=== PATIENT | female | born 1955 | race Caucasian/White ===

== ENCOUNTER → 2021-08-24 15:58 | Outpatient (CLI) | payer OTHER, SELFPAY ==
--- NOTE | 2021-08-24 15:45 | DI.RAD_ITS ---
Exam(s) XR CHEST 2V PA LATERAL EXAM: XR CHEST 2V PA LATERAL CLINICAL HISTORY: cough R05.9 TECHNIQUE: 2D digital imaging was performed of the chest. Two images were obtained. PA and lateral views were obtained. COMPARISON: No exams were available for comparison FINDINGS: MEDIASTINUM: Normal. HEART: Normal. PULMONARY VASCULATURE: Normal. LUNGS: Clear. PLEURAL SPACE: No pleural effusion or pneumothorax. BONE:Within normal limits for the patient's age. OTHER FINDINGS:Normal. IMPRESSION: No acute pulmonary findings. DATA REPOSITORY: RADIATION DOSE DELIVERED:
== END ==
PROVIDERS: Visit Provider Physician Assistant
DX: R05.9 Cough, unspecified (principal)
CPT/HCPCS: 71046

== ENCOUNTER 2021-08-30 13:43 | Emergency (ER) | payer OTHER, SELFPAY ==
[2021-08-30] VITALS (102 sets, daily range): BP systolic 137–142; BP diastolic 63–78; PULSE 72–84; RESP 13–26; TEMP 36.2; O2SAT 92–98
--- NOTE | 2021-08-30 14:15 | RT.EKG_ITS ---
APPROVED REPORT Exam: Resting ECG Reason for Exam: Chest pain Patient Location: E HR:80 bpm ECG Measurements Heart Rate 80 AXIS NJ 186 P 57 QRSd 92 QRS 43 QT 375 T 55 QTc 434 Conclusion Sinus rhythm...normal P axis, V-rate 60- 99. Sinus. Normal axis. No STEMI. I have reviewed and interpreted ECG and agree with software generated interpretation.
--- NOTE | 2021-08-30 14:23 | ED.GENADUL_ITS ---
Discharge Plan Disposition Patient Disposition: HOME Condition: Stable Discharge Details Clinical Impression: Multifocal pneumonia Primary Care Provider: Kale Unger ED Provider: Gloria Lam Home Meds and New Rx's Prescriptions: New doxycycline hyclate 100 mg tablet 100 mg PO BID 3 Days Qty: 6 0RF Continued doxycycline hyclate 100 mg capsule 100 mg PO BID Qty: 14 0RF Rx Instructions: Avoid sun exposure. Take with meal. Take 1 pill every 12 hours x 7 days benzonatate 100 mg capsule 100 mg PO TID PRN (Reason: cough) Qty: 14 0RF albuterol sulfate [Proventil HFA] 90 mcg/actuation HFA aerosol inhaler 2 puff inhalation Q6H PRN (Reason: shortness of breath or wheezing) Qty: 8.5 0RF acetaminophen [Tylenol Extra Strength] 500 mg Tablet 1,000 mg PO QID Discontinued azithromycin 250 mg tablet See Rx Instructions PO .COMPLEX Qty: 6 0RF Rx Instructions: For 250 mg dose pack: take 500 mg today (day 1), then 250 mg for 4 days (days 2-5) PO Discharge Instructions Instructions: Pneumonia (ED) Additional Instructions: Stop taking the azithromycin and take the doxycycline Yogurt daily while on antibiotic Extend your antibiotics for 3 more days Please return earlier should you have new or worsening complaints Recheck in 48 hours Referrals: Kale Unger [Primary Care Provider] - Discharge Data Discharge Date/Time-TO BE ENTERED AT DEPARTURE: 08/30/21 18:35 Medical Decision Making <Apoorva Diehl NP - Last Filed: 08/31/21 22:02> 65-year-old female presents to the ER with chief complaints of cough, shortness of breath and bilateral chest pain which began acutely at noon today. She does have a congested cough, significant prior medical yesterday diagnosed with pneumonia was given azithromycin, doxycycline and Tessalon Perles. She does have an albuterol inhaler at home which she has been using. She did take Tylenol prior to arrival this morning. She is a former smoker. She also had bronchitis a week ago. She was tested negative for COVID yesterday. She had a negative chest x-ray on August 24. Work-up ordered including EKG, serial troponins, D-dimer will consider chest CT. CBC shows white blood cell count of 12.54, platelets 453, absolute neutrophils 9.09 D-dimer 1138, CMP within normal limits glucose 134 initial troponin within normal limits. CT chest rule out PE ordered. Care to be handed off to oncoming provider GRACIELA Sy pending CT result, repeat troponin and disposition. Lab Data Lab results reviewed: Yes I reviewed the patient's lab results. Labs: Laboratory Tests Range/Units 08/30/21 08/30/21 08/30/21 14:10 14:10 14:10 WBC (4.4-10.8) 10^3/uL 12.54 H RBC (3.93-5.22) 10^6/uL 3.84 L Hgb (11.2-15.7) g/dL 11.4 Hct (36.0-46.0) % 34.6 L MCV (80-95) fL 90 MCH (27.0-33.0) pg 29.7 MCHC (32.0-36.0) % 32.9 RDW (11.7-14.6) % 13.2 Plt Count (130-400) 10^3/uL 453 H MPV (8.0-11.0) fL 9.2 Immature Gran % 3.8 Neutrophils % 72.5 Lymphocytes % 16.8 Monocytes % 5.8 Eosinophils % 0.8 Basophils % 0.3 Nucleated RBC % (0.0-0.3) % 0.0 Absolute Neutrophils (1.2-6.7) 10^3/uL 9.09 H Absolute Lymphocytes (1.2-3.4) 10^3/uL 2.11 Absolute Monocytes (0.1-0.8) 10^3/uL 0.73 Absolute Eosinophils (0.0-0.7) 10^3/uL 0.10 Absolute Basophils (0.0-0.2) 10^3/uL 0.04 D-Dimer (<500) ng/mlFEU 1138 H Sodium (136-145) mmol/L 136 Potassium (3.5-5.1) mmol/L 3.9 Chloride (98-107) mmol/L 100 Carbon Dioxide (21.0-32.0) mmol/L 29.7 Anion Gap (3-11) mmol/L 6.3 BUN (7-18) mg/dL 10 Creatinine (0.55-1.02) mg/dL 0.6 Estimated GFR/1.73 m2 (mL/min/1.73m2) >= 60.00 Glucose (74-106) mg/dL 134 H Calcium (8.5-10.1) mg/dL 9.0 Magnesium (1.8-2.4) mg/dL 2.3 Total Bilirubin (0.2-1.0) mg/dL 0.3 AST (15-37) U/L 24 ALT (14-59) U/L 33 Alkaline Phosphatase (46-116) U/L 111 Troponin I (<or=60) ng/L < 50 Total Protein (6.4-8.2) g/dL 7.9 Albumin (3.4-5.0) g/dL 3.4 <GRACIELA Sy - Last Filed: 08/30/21 21:39> 65-year-old female presents to the ER with chief complaints of cough, shortness of breath and bilateral chest pain which began acutely at noon today. She does have a congested cough, significant prior medical yesterday diagnosed with pneumonia was given azithromycin, doxycycline and Tessalon Perles. She does have an albuterol inhaler at home which she has been using. She did take Tylenol prior to arrival this morning. She is a former smoker. She also had bronchitis a week ago. She was tested negative for COVID yesterday. She had a negative chest x-ray on August 24. Work-up ordered including EKG, serial troponins, D-dimer will consider chest CT. CBC shows white blood cell count of 12.54, platelets 453, absolute neutrophils 9.09 D-dimer 1138, CMP within normal limits glucose 134 initial troponin within normal limits. CT chest rule out PE ordered. Care to be handed off to oncoming provider GRACIELA Sy pending CT result, repeat troponin and disposition. care accepted in transition from at [address] scan and repeat troponin and EKG I discussed with Dr. Ruiz, radiologist the patient has multifocal pneumonia Patient clinically appears well, she has not hypoxic and she does request discharge home Radha states she is feeling slightly improved from yesterday when she was started on doxycycline and azithromycin I discontinued her azithromycin, she will continue to take 10 days of doxycycline, I have added 3 days on her regimen She will have yogurt daily while she is on this Her second troponin and EKG were negative, my suspicion for cardiac etiology is low based on her clinical exam and diagnostic labs and EKG 50 mg with return should she have new or worsening complaints and discharged home in stable condition with stable vital Medical Records Medical records reviewed: Yes I reviewed the patient's medical records. HPI <Apoorva Diehl NP - Last Filed: 08/31/21 22:02> General Mode of arrival: ambulatory . Date/Time Provider Initiated Documentation: 08/30/21 13:43 . Limitations to Documentation: no limitations . Information obtained by: patient, RN notes reviewed and old records reviewed . HPI Narrative: 65-year-old female presents to the ER with chief complaints of cough, shortness of breath and bilateral chest pain which began acutely at noon today. She does have a congested cough, significant prior medical yesterday diagnosed with pneumonia was given azithromycin, doxycycline and Tessalon Perles. She does have an albuterol inhaler at home which she has been using. She did take Tylenol prior to arrival this morning. She is a former smoker. She also had bronchitis a week ago. She was tested negative for COVID yesterday. She had a negative chest x-ray on August 24. Related Data Home Medications Medication Instructions Recorded Confirmed albuterol sulfate 90 mcg/actuation 2 puff inhalation Q6H PRN 08/24/21 08/30/21 aerosol inhaler (Proventil HFA) shortness of breath or wheezing #8.5 grams benzonatate 100 mg capsule 100 mg PO TID PRN cough #14 caps 08/29/21 08/30/21 doxycycline hyclate 100 mg capsule 100 mg PO BID #14 caps 08/29/21 08/30/21 acetaminophen 500 mg tablet 1,000 mg PO QID 08/30/21 08/30/21 (Tylenol Extra Strength) doxycycline hyclate 100 mg tablet 100 mg PO BID 3 days #6 tabs 08/30/21 Previous Rx's Medication Instructions Recorded albuterol sulfate 90 mcg/actuation 2 puff inhalation Q6H PRN 08/24/21 aerosol inhaler (Proventil HFA) shortness of breath or wheezing #8.5 grams benzonatate 100 mg capsule 100 mg PO TID PRN cough #14 caps 08/29/21 doxycycline hyclate 100 mg capsule 100 mg PO BID #14 caps 08/29/21 doxycycline hyclate 100 mg tablet 100 mg PO BID 3 days #6 tabs 08/30/21 Allergies Allergy/AdvReac Type Severity Reaction Status Date / Time Penicillins Allergy Verified 08/30/21 13:51 General Stated Complaint: GenMedical RADHA: 3 Review of Systems <Apoorva Diehl NP - Last Filed: 08/31/21 22:02> All systems reviewed & are unremarkable except as noted in HPI and below Constitutional Constitutional: Denies body ache(s), Denies chills and Denies fever(s) Cardiovascular Cardiovascular: Reports as per HPI, Reports chest pain and Reports dyspnea on exertion Respiratory Respiratory: Reports chest congestion, Reports cough, Denies hemoptysis, Reports pain with cough, Reports dyspnea on exertion and Denies wheezing Gastrointestinal Gastrointestinal: Denies diarrhea, Denies nausea and Denies vomiting Allergic/Immunologic Allergic/Immunologic: Denies wheezing PFSH <Apoorva Diehl NP - Last Filed: 08/31/21 22:02> All Active Problems (Updated 08/30/21 @ 18:11 by GRACIELA Sy) Multifocal pneumonia (Acute) Social History Smoking/Tobacco Use Status: Never Smoking risk assessment performed?: Yes Alcohol Intake: never Drug use: Never Substance use type: does not use Do you feel safe at home: Yes Do you feel safe in your relationship?: Yes Exam <Apoorva Diehl NP - Last Filed: 08/31/21 22:02> Narrative Exam Narrative: Constitutional: Alert and oriented x3. Appears stated age. Thinl body habitus. Head: Normocephalic, no trauma. Eyes: Pupils PERRL, Red reflex noted, EOM's intact. Eyelids symmetrical without lesions, discharge, or swelling. ENT: Bilateral TM's WNL, External ear normal to inspection, no mastoid TTP, swelling, or erythema, Nasal turbinates WNL, no nasal discharge. Normal dentition, Posterior pharynx WNL, no exudate. Chest: RRR, Normal S1, S2, distal pulses intact. Resp: Lungs clear to auscultation bilaterally, no wheezes, rales, or rhonchi. Does have a congested bronchial cough. Abdomen: Soft, non-distended, Normoactive bowel sounds all 4 quads. Musculoskeletal: Normal gait, 5/5 strength to all four extremities. Skin: No suspicious rashes or lesions. Capillary refill less than 2 sec. Neurologic: Cranial nerves II-XII intact. Alert and oriented x 3. Motor: No deficits noted. Sensory: Intact bilaterally all 4 extremities. Reflexes: DTR's intact bilaterally.. Hematologic/Lymphatic: No ecchymosis, no lymphadenopathy. Course <Apoorva Diehl NP - Last Filed: 08/31/21 22:02> Vital Signs Vital signs: Vital Signs Temperature 36.2 C L 08/30/21 13:48 Pulse 84 08/30/21 13:48 Respiratory Rate 16 08/30/21 13:48 Blood Pressure 142/78 H 08/30/21 13:48 Pulse Oximetry 98 08/30/21 13:48 Temperature 36.2 C L 08/30/21 13:48 Temperature Source Skin 08/30/21 13:48 Pulse 84 08/30/21 13:48 Respiratory Rate 20 08/30/21 13:59 Respiratory Effort Short of Breath 08/30/21 13:59 Respiratory Depth Normal 08/30/21 13:59 Respiratory Pattern Normal 08/30/21 13:59 Blood Pressure 142/78 H 08/30/21 13:48 Blood Pressure Position Sitting 08/30/21 13:48 Pulse Oximetry 98 08/30/21 13:48 Oxygen Delivery Method Room Air 08/30/21 13:48 Oxygen Flow Rate 0 08/30/21 13:48 Pain Level 10 08/30/21 13:48 Sign Out <Apoorva Diehl NP - Last Filed: 08/31/21 22:02> Sign Out Data: Sign Out Comment: Pending CTA Chest and Repeat Troponin Last updated by Apoorva Diehl NP at 08/30/21 15:37
[2021-08-30 14:32] LABS: Abs Immature Grans 0.48 10^3/uL (0.0-0.06); Absolute Basophil Count 0.04 10^3/uL (0.0-0.2); Absolute Lymphocyte Count 2.11 10^3/uL (1.2-3.4); Absolute Monocyte Count 0.73 10^3/uL (0.1-0.8); Basophils % 0.3; Eosinophils % 0.8; HCT 34.6 % (36.0-46.0); HGB 11.4 g/dL (11.2-15.7); Immature Grans % 3.8; Lymphocytes % 16.8; MCH 29.7 pg (27.0-33.0); MCHC 32.9 % (32.0-36.0); MCV 90 fL (80-95); MPV 9.2 fL (8.0-11.0); Monocytes % 5.8; Neutrophils % 72.5; Platelet Count 453 10^3/uL (130-400); RBC 3.84 10^6/uL (3.93-5.22); RDW 13.2 % (11.7-14.6); RDW-SD 43.8 fL; WBC 12.54 10^3/uL (4.4-10.8)
[2021-08-30 14:34] LABS: Absolute Neutrophil Count 9.09 10^3/uL (1.2-6.7)
[2021-08-30] MEDS: Ketorolac 15 MG/ML VIAL IVP (14:38)
[2021-08-30 14:53] LABS: ALT 33 U/L (14-59); AST 24 U/L (15-37); Albumin 3.4 g/dL (3.4-5.0); Alkaline Phosphatase 111 U/L (46-116); Anion Gap 6.3 mmol/L (3-11); BUN 10 mg/dL (7-18); Bilirubin, Total 0.3 mg/dL (0.2-1.0); CO2 29.7 mmol/L (21.0-32.0); CREATININE 0.6 mg/dL (0.55-1.02); Chloride 100 mmol/L (98-107); Glucose 134 mg/dL (74-106); Magnesium 2.3 mg/dL (1.8-2.4); Potassium 3.9 mmol/L (3.5-5.1); Sodium 136 mmol/L (136-145); Total Protein 7.9 g/dL (6.4-8.2); Troponin I < 50 ng/L (<or=60)
[2021-08-30 15:15] LABS: D-Dimer 1138 ng/mlFEU (<500)
--- NOTE | 2021-08-30 15:15 | DI.CT_ITS ---
Exam(s) CT CHEST PE CTA EXAM: CT CHEST PE CTA CLINICAL HISTORY: R/O PE, Chest Pain, Cough. TECHNIQUE: Imaging Protocol: Axial CT angiography was performed with multi-slice acquisition and mu lti-planar and/or 3D reconstructions. CONTRAST MATERIAL: Intravenous: Omnipaque 350ml contrast volume:100 mL COMPARISON: CR XR CHEST 2V PA LATERAL from 08/24/2021 FINDINGS: Tracheobronchial tree: Patent where visualized. Pulmonary parenchyma: Multifocal opacities are seen in the lungs. Some of which have a ground-glass opacity. There are some larger areas of consolidation seen in the left lower lobe. No architectural distortion. Pulmonary Arteries: No evidence of filling defect to suggest pulmonary emboli. Mediastinum and Kaylee: No dominant adenopathy or fluid collection. The esophagus is unremarkable. Visualized thyroid gland: Unremarkable. Pleura: There are small bilateral pleural effusions. No pneumothorax. Heart: Mild cardiomegaly. Mild coronary artery calcification. No pericardial effusion. Aorta: Thoracic aorta non-dilated. No evidence of dissection. Mild atherosclerosis. Upper abdomen: Unremarkable. Soft tissues: Unremarkable. Bones: Within normal limits for the patient's age. IMPRESSION: 1. No evidence of pulmonary embolism, thoracic aortic dissection or aneurysm. 2. Multifocal opacities in the lungs some which have a ground-glass opacity. Findings are suspicious for multifocal pneumonia. A follow-up CT scan after treatment is recommended to document clearing o f the infiltrates. 3. Small bilateral pleural effusions. 4. Results of this exam have been verbally communicated with provider. RADIATION DOSE DELIVERED: 298.57mGy.cm Total DLP DATA REPOSITORY: All CT scans at this facility are submitted to the National Radiology Data Registry (NRDR) Dose Index Registry (DIR) with the [employer] ([employer]). RADIATION OPTIMIZATION: All CT scans at this facility use at least one of these dose optimization te chniques: automated exposure control; mA and/or kV adjustment per patient size (includes targeted exa ms where dose is matched to clinical indication); or iterative reconstruction.
[2021-08-30] MEDS: Omnipaque 350 MG/ML 100 ML BTL IJ (16:03)
--- NOTE | 2021-08-30 17:00 | RT.EKG_ITS ---
APPROVED REPORT Exam: Resting ECG Reason for Exam: repeat trop Patient Location: E HR:69 bpm ECG Measurements Heart Rate 69 AXIS ND 203 P 57 QRSd 86 QRS 40 QT 411 T 52 QTc 441 Conclusion Sinus rhythm...normal P axis, V-rate 60- 99 Probable left atrial enlargement...P >50mS, <-0.10mV V1. Sinus. Normal axis. No STEMI. I have reviewed and interpreted ECG and agree with software generated interpretation.
[2021-08-30 17:52] LABS: Troponin I < 50 ng/L (<or=60)
[2021-09-01 11:51] LABS: COVID-19 RT-PCR UVMMC Result Negative (Negative)
== END 2021-08-30 18:35 | disposition home or self-care (01) ==
PROVIDERS: Registered Nurse Emergency; Emergency Provider Physician Assistant; PCP Neuromusculoskeletal Medicine & OMM
DX: J18.9 Pneumonia, unspecified organism (principal); R07.9 Chest pain, unspecified; R05.1 Acute cough
CPT/HCPCS: 36415; 71275; 80053; 93005; 96374; 99284; 99285; U0003; 83735; 84484; 85025; 85379; 93010; J1885; J3490

== ENCOUNTER 2021-09-13 18:15 | Outpatient (REF) | payer OTHER, SELFPAY | END 2021-09-14 15:35 | disposition home or self-care (01) | LOC: LBN 18:15 | PROVIDERS: PCP Neuromusculoskeletal Medicine & OMM; Visit Provider Physician Assistant | DX: R30.0 Dysuria (principal) | CPT/HCPCS: 87480; 87510; 87660 ==

== ENCOUNTER → 2022-11-10 00:52 | Outpatient (CLI) | payer OTHER, SELFPAY ==
--- NOTE | 2022-11-10 15:34 | DI.MAMMO_ITS ---
Exam(s) MAMMO SCREENING EXAM: MAMMO SCREENING CLINICAL HISTORY: screening,z12.39 TECHNIQUE: Mammograms were interpreted according to the usual protocol including computer analysis w ith CAD system, tomosynthesis and C-view imaging. COMPARISON: No exams were available for comparison. FINDINGS: The breasts are composed of scattered fibroglandular densities, Breast Density category B. No suspicious masses or suspicious microcalcifications are seen. No skin thickening or abnormal axillary lymph nodes are seen. IMPRESSION: BI-RADS Category 1, Negative mammogram Yearly screening mammography is recommended. If the patient's prior exams become available, an addendum will be issued. Breast Density - Category B, scattered fibroglandular densities. A negative radiographic report should not delay biopsy if a dominant or clinically suspicious mass is present. Up to ten percent of cancers are not identified on mammography. A negative report may reinforce clinical impression. Adenosis and dense breasts may obscure an underlying neoplasm. False positive reports average 6 to 10%. Patient will receive a letter notifying them of these results.
== END ==
PROVIDERS: PCP Nurse Practitioner Family; Visit Provider Nurse Practitioner Family
DX: Z12.31 Encounter for screening mammogram for malignant neoplasm of breast (principal)
CPT/HCPCS: 77063; 77067

== ENCOUNTER 2022-11-10 01:57 | Outpatient (CLI) | payer OTHER, SELFPAY ==
[2022-11-10 15:35] LABS: Hemoglobin A1C 5.5 % (<5.7)
[2022-11-10 17:07] LABS: Calculated LDL 127 mg/dL (<100); Cholesterol 220 mg/dL (<200); HDL Cholesterol 45 mg/dL (40-60); Triglyceride 240 mg/dL (<150)
== END 2022-11-10 01:58 | disposition home or self-care (01) ==
LOC: LBO 01:57
PROVIDERS: PCP Nurse Practitioner Family; Visit Provider Nurse Practitioner Family
DX: Z13.220 Encounter for screening for lipoid disorders (principal); Z13.1 Encounter for screening for diabetes mellitus
CPT/HCPCS: 36415; 80061; 83036

== ENCOUNTER 2023-01-12 08:55 | Day surgery (SDC) | payer OTHER, SELFPAY ==
--- NOTE | 2023-01-11 16:20 | W.COLOREPORT ---
Date of service: 01/12/23 Time of Service: 12:39 Colonoscopy Report Date of procedure: 01/12/23 Pre-op diagnosis general: CRC screening/hx of incomplete colo Post-op diagnosis procedure note: other (Internal and external hemorrhoids/incomplete rectal prolapse at 7:00/diverticula/polyp) Surgeon: Ruby Casillas Anesthesia Type: General:No Airway Estimated blood loss (mL): 2 Pathology: other Complications: None Disposition: same day Prep: Miralax/Dulcolax Retraction Time: 10 Procedure Description: After informed consent was obtained the patient was taken to the procedure room and placed in a left decubitous position. Monitors were applied and a time out was done. The patients name, date of , procedure, allergies to medications and metal in their body was reviewed. The patient was then sedated. Once sedated and comfortable a rectal exam was done. External exam shows moderate external hemorrhoids with no signs of active bleeding or thrombosis. She also has incomplete rectal prolapse at the 7 o'clock position.. Internal exam revealed a normal sphincter tone and no palpable masses. The scope was then introduced and retrofelexed. No internal hemorrhoids were identified. The scope was then advanced to the cecum without difficulty. She does have a tortuous and redundant colon however I am able to proceed to the cecum. The TI and appendiceal orifice were identified. The prep was BBPS 3 in all segments for a total of 9. The scope was then slowly retracted over 10 minutes back into the rectum. She has a flat 0.5 cm polyp at 20 cm that is removed with a cold biopsy forcep. All specimen is retrieved and no bleeding is noted. She has moderate diverticula confined to the sigmoid colon with no signs of active bleeding or infection.. The scope was removed and the patient was woken up and taken back to Same day surgery in stable condition. The patient tolerated the procedure well and there were no immediate complications. Follow up: The patient should follow up in ~7 years, path pending, unless they develop changes in bowel habits or other new gastrointestinal complaints.
--- NOTE | 2023-01-11 16:21 | PDOC.DSDIS_ITS ---
Date of service: 01/12/23 Time of Service: 10:56 Discharge Plan Disposition Patient Disposition: Home Condition: Good Discharge Details Reason For Visit: colon scope Attending Provider: Ruby Casillas Primary Care Provider: Steven Mandel Home Meds and New Rx's Prescriptions: Continued ascorbate calcium (vitamin C) 500 mg tablet 500 mg PO DAILY cholecalciferol (vitamin D3) 50 mcg (2,000 unit) capsule 50 mcg PO DAILY vitamin K2 45 mcg capsule 45 mcg PO DAILY mupirocin 2 % ointment 1 applic topical TID Qty: 15 0RF albuterol sulfate [Proventil HFA] 90 mcg/actuation HFA aerosol inhaler 2 puff inhalation Q6H PRN (Reason: shortness of breath or wheezing) Qty: 8.5 0RF acetaminophen [Tylenol Extra Strength] 500 mg Tablet 1,000 mg PO QID Discontinued bisacodyl [Dulcolax (bisacodyl)] 5 mg tablet,delayed release (DR/EC) 5 mg PO ONCE Qty: 4 0RF Rx Instructions: Take per colonoscopy instructions provided by ordering providers office polyethylene glycol 3350 17 gram/dose powder 17 g PO ONCE Qty: 238 0RF Rx Instructions: Take per colonoscopy instructions provided by ordering providers office Discharge Instructions Additional Instructions: DSU Colonoscopy Post- Op Instructions Instructions for Everyone who is given Anesthesia: For your safety, please do the following for the next twenty-four (24) hours: *Do Not operate a motor vehicle (car, truck, motorcycle, etc.) *Do Not drink alcoholic beverages or use any recreational drugs for the first 24 hours or while taking pain medications. The medications in your body may have a reaction that can be dangerous. *Do Not make any important decisions or sign any important papers. Findings: External hemorrhoids Incomplete rectal prolapse Diverticula Colon polyp x1 *I would recommend starting a fiber supplement daily such as Metamucil. Start with 1 teaspoon daily and work up to a tablespoon after several weeks Follow up: My office will send you a letter in 2 to 3 weeks time with the results of the pathology and when we want you to repeat the colonoscopy 1. No lifting over 20 pounds or strenuous activity for the first 24 hours after your procedure. After 24 hours there are no restrictions on your activity but you may feel fatigued for a few days. 2. After you arrive home you may have a light meal and return to your normal diet as you can tolerate it without feeling sick to your stomach. 3. You may have a bloated, gaseous feeling in your belly (abdomen) after a colonoscopy. Passing gas and belching will help. Walking or lying down on your left side with your knees flexed may relieve the discomfort. Call the office at [phone] (Office) or [phone] (Hospital) right away if you notice any of the following: a.Vomiting of blood or ?coffee ground stools?. b.Rectal bleeding 1Tbsp, blood clots or continuous bleeding. c.Severe belly (abdominal) pain. d.A hard distended belly (abdomen) and an inability to pass gas. 4. Please don?t expect to have a normal BM (bowel movement) for 2-3 days after your procedure. 5. If there are questions regarding the findings of your procedure, please contact your doctor 6. If you are unable to contact your doctor with a problem, contact the hospital at [phone]. 7. Continue all your regular medications unless directed otherwise. I understand the above instructions and have no questions. Signature of Patient or Adult Escort Name of Responsible Adult Escort Signature of Nurse Date/Time Activity:: see above Diet:: see above Discharge Orders Discharge Orders: Discharge Order (Routine); Ordered 01/12/23 Ordered By: Ruby Casillas DS: Diagnosis Discharge Diagnosis (1) Screening for malignant neoplasm of colon performed: Status: Acute Asessment and Plan: The patient is seen and examined after their colonoscopy.? The patient has been able to pass gas.? They are not having abdominal pain.? They have been able to tolerate liquids and a snack.? They do not have any nausea or vomiting.? They are not having any chest pain or shortness of breath.??? They are not having any rectal bleeding. Their vital signs have been stable-see nursing notes. We discussed findings during their colonoscopy, and any biopsies that were done/polyps that were removed. The patient will be sent a letter with any biopsy results, and when to repeat the colonoscopy.-see discharge instructions. Patient was given explicit instructions to follow-up regarding colonoscopy-refer to discharge instructions.? We reviewed resumption of medications. Patient verbalized understanding and discharged in stable and satisfactory condition- See nursing notes. (2) External hemorrhoid: Status: Acute (3) Incomplete rectal prolapse: Status: Acute (4) Diverticula of colon: Status: Acute (5) Adenomatous polyps: Status: Acute (6) Chronic constipation: Status: Acute
[2023-01-12 09:15] VITALS: BP 135/78; PULSE 78; RESP 16; TEMP 36.2; O2SAT 99
[2023-01-12] MEDS: Lactated Ringers 1,000 ML 80 ML IV (09:34)
--- NOTE | 2023-01-12 09:41 | ANES.PREOP_ITS ---
General Info Date of Service Date Performed: 01/12/23 Height: 5 ft 5 in Weight: 68.3 kg Body Mass Index (BMI): 25.0 Surgical Procedure: Operation Date: 01/12/23 10:35 Proposed Procedure Side Surgeon deana Casillas, Meds Allergies and Home Medications Allergies Allergy/AdvReac Type Severity Reaction Status Date / Time Penicillins Allergy Verified 01/11/23 10:42 Home Medication Medication Instructions Recorded albuterol sulfate 90 mcg/actuation 2 puff inhalation Q6H PRN 08/24/21 aerosol inhaler (Proventil HFA) shortness of breath or wheezing #8.5 grams acetaminophen 500 mg tablet 1,000 mg PO QID 08/30/21 (Tylenol Extra Strength) mupirocin 2 % topical ointment 1 applic topical TID #15 grams 09/30/22 ascorbate calcium (vitamin C) 500 500 mg PO DAILY 11/02/22 mg tablet cholecalciferol (vitamin D3) 50 50 mcg PO DAILY 11/02/22 mcg (2,000 unit) capsule vitamin K2 45 mcg capsule 45 mcg PO DAILY 11/02/22 Current Visit Medications: Current Medications Generic Name Dose Route Start Last Admin Trade Name Freq PRN Reason Stop Dose Admin Hyoscyamine Sulfate 0.125 mg 01/12/23 11:35 Hyoscyamine 0.125 Mg Sl/Oral/Chew SL 02/11/23 11:34 DIRECTED PRN Ringer's Solution 1,000 mls @ 80 mls/hr 01/12/23 06:00 01/12/23 09:34 IV 02/10/23 23:59 80 mls/hr INFUSION LUIS Administration IV Miscellaneous Supplies 1 each 01/12/23 06:00 Iv Access IV 02/10/23 23:59 DIRECTED LUIS Ondansetron HCl 4 mg 01/12/23 11:35 Ondansetron 4 Mg/2 Ml Vial IVP 02/11/23 11:34 Q4H PRN PRN Nausea / Vomiting Sodium Chloride 0 ml 01/12/23 06:00 Normal Saline Flush 10 Ml Syr IV 02/10/23 23:59 PRN PRN Sodium Chloride 0 ml 01/12/23 06:00 Normal Saline 10 Ml Vial IJ 02/10/23 23:59 DIRECTED PRN Sterile Water 0 ml 01/12/23 06:00 Water,Injection,Sterile 10 Ml Vial IJ 02/10/23 23:59 DIRECTED PRN PFS Active Problems Active Problems: Problem Status Onset Code Screening for malignant neoplasm of colon performed Z12.11 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 Lentiginosis L81.4 Elevated blood pressure reading without diagnosis of hypertension R03.0 Actinic keratoses L57.0 Senile hyperkeratosis L57.0 Eczema L30.9 Seborrheic dermatitis of scalp L21.9 Residual hemorrhoidal skin tags K64.4 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 Raynaud disease I73.00 Verruca vulgaris B07.9 Medical History Medical History Basal cell carcinoma of skin (~01/27/20) Dermatofibroma (~01/27/20) Malignant melanoma of skin Viral warts Surgical History Surgical History Hx of tubal ligation (~03/05/92) Tobacco Smoking/Tobacco Use Status: Former Tobacco Use Passive smoking exposure: Yes Second hand exposure: Yes Alcohol Alcohol Intake: current Alcohol intake frequency: a few times a week Alcohol type: wine Substance Use Substance use: Never Substance use type: does not use Vital Signs and Lab Results Vital Signs Most Recent Vital Signs in EMR: Most Recent Vital Signs Temp Pulse Resp BP Pulse Ox 36.2 C L 78 16 135/78 99 01/12/23 09:15 01/12/23 09:15 01/12/23 09:15 01/12/23 09:15 01/12/23 09:15 Lab Results Blood Type / Crossmatch: No Data to Display Complete Blood Count: No Data to Display Complete Metabolic Panel: No Data to Display Liver Function Panel: No Data to Display Coagulation Panel: No Data to Display Cardiac Panel: No Data to Display Arterial Blood Gas: No Data to Display Venous Blood Gas: No Data to Display Pancreas Panel: No Data to Display Thyroid Panel: No Data to Display Infectious Disease: No Data to Display Blood Cultures: No Data to Display Toxicology Panel: No Data to Display Imaging and Studies Imaging and Studies Study information below may be from another EMR and interpreted by another provider. Please see original notes in EMR for more complete details. EKG Summary: EKG PATIENT NAME: Lisa Mccray UNIT #: [id number] ORDERING PROVIDER: Gloria Lam PRIMARY CARE PROVIDER: AIDAN ARMENDARIZ DO DATE/TIME OF SERVICE: 08/30/211717 : 1955 PERFORMING LOCATION: ER APPROVED REPORT Exam: Resting ECG Reason for Exam: repeat trop Patient Location: E HR:69 bpm ECG Measurements Heart Rate 69 AXIS MO 203 P 57 QRSd 86 QRS 40 QT 411 T52 QTc 441 Conclusion Sinus rhythm...normal P axis, V-rate 60- 99 Probable left atrial enlargement...P >50mS, <-0.10mV V1. Sinus. Normal axis. No STEMI. I have reviewed and interpreted ECG and agree with software generated interpretation. <Electronically signed by LAURA JORGE DO in [facility]> E-Sign Date: 08/30/21 E-Sign Time: 1804 ADDENDUM APPROVED REPORT Exam: Resting ECG Reason for Exam: repeat trop Patient Location: E HR:69 bpm ECG Measurements Heart Rate 69 AXIS MO 203 P 57 QRSd 86 QRS 40 QT 411 T52 QTc 441 Conclusion Sinus rhythm...normal P axis, V-rate 60- 99 Probable left atrial enlargement...P >50mS, <-0.10mV V1. Sinus. Normal axis. No STEMI. I have reviewed and interpreted ECG and agree with software generated interpretation. I have reviewed and I agree with the emergency room physician's ECG interpretation. Electronically signed by: <Electronically signed by Denisse Serra M.D. in [facility]> 09/01/21 0830 Cosigned by: Anesthesia Assessment and Plan Anesthesia History Personal History: No History of Anesthesia Complications Family History: No Family History of Anesthesia Complications Exercise Tolerance Exercise Tolerance: Metabolic Equivalents>4 Pertinent Negatives Pertinent Negatives: No Symptoms of GERD, No Major Cardiovascular Symptoms or Complaints, No Major Pulmonary Symptoms or Complaints and No History of CVA/TIA Cardiac & Pulmonary Exam Cardiac Exam: Normal S1/S2 Heart Sounds Pulmonary Exam: Clear Bilateral Breath Sounds Implantable Cardiac Device Does patient have a Pacemaker or an ICD?: No Airway Exam Known Difficult Airway: No Mallampati Class: 2 Mouth Opening: Normal (> 3cm) Thyromental Distance: Greater than 3 cm Neck Range of Motion: Full ROM Neck Circumference: Normal Teeth Condition: Normal Dentition ASA Classification ASA Score: ASA 2 Emergency Case?: No NPO Status NPO Status: NPO Clears >2 hours, Solids >8 hours Anesthesia Plan Resuscitation Status: Full Code Anesthesia Technique: General Anesthesia Airway Planned: Natural Airway Monitors Used: Standard Monitors
[2023-01-12 10:17] VITALS: BMI 25.0
--- NOTE | 2023-01-12 10:25 | BOWEL_PTH ---
PATIENT: Lisa Mccray LOC: [facility] U#:[id number] AGE/SX: 67/F ROOM: RE01/12/[address]: Ruby Casillas : 1955 BED: DIS: 01/12/2023 SPEC #: [id number] RECD: 01/12/23 12:08 STATUS: RORO REAlberto #: [id number] JHONATHAN: 01/12/23 10:[address]: Ruby Casillas DEPT: Surgical Specimen RECD BY: Gloria Cox ENTERED: 01/12/23 12:09 SP TYPE: Bowel OTHR DR: Steven Mandel, DRAGGER OUT Tissues: 1 - BIOPSY BOWEL Procedures: GROSS AND MICRO LEVEL 4 Comments: [id number]
[2023-01-12 10:30] VITALS: BP 118/70; PULSE 59; RESP 16; TEMP 36.5; O2SAT 98
[2023-01-12 11:00] VITALS: BP 131/76; PULSE 57; RESP 17; TEMP 36.5; O2SAT 99
--- NOTE | 2023-01-12 12:23 | W.ANESPOSTOP ---
Postoperative Evaluation Date, Time and Location Date Performed: 01/12/23 Time Performed: 10:33 Patient Location: Day Surgery Unit Vital Signs Most Recent Imported Vital Signs: Most Recent Vital Signs Temp Pulse Resp BP Pulse Ox 36.5 C 57 L 17 131/76 99 01/12/23 11:00 01/12/23 11:00 01/12/23 11:00 01/12/23 11:00 01/12/23 11:00 Pain Score Most Recent Pain Score: Most Recent Pain Score Pain Level 0 01/12/23 11:00 Assessment Mental Status: Awake (Alert & Oriented to Patient Baseline) Airway and Respiratory Function: Patent airway with normal (patient baseline) respiratory exam Cardiovascular Function: Hemodynamically Stable Hydration Status: Adequately Hydrated Nausea & Vomiting: No Nausea or Vomiting Pain: Pt. Denies Any Pain Peripheral Nerve Block: Patient did not receive a nerve block
== END 2023-01-12 11:40 | disposition home or self-care (01) ==
PROVIDERS: PCP Nurse Practitioner Family; Visit Provider Surgery
PROC: 0DJD8ZZ Inspection of Lower Intestinal Tract, Via Natural or Artificial Opening Endoscopic (ICD-10-PCS; CPT 45378; principal; 2023-01-12 10:30)
DX: Z12.11 Encounter for screening for malignant neoplasm of colon (principal); D12.5 Benign neoplasm of sigmoid colon; K62.3 Rectal prolapse; K64.4 Residual hemorrhoidal skin tags; K57.30 Diverticulosis of large intestine without perforation or abscess without bleeding
CPT/HCPCS: 45380; 88305

== ENCOUNTER 2023-11-27 01:27 | Outpatient (CLI) | payer OTHER, SELFPAY ==
--- NOTE | 2023-11-27 06:15 | DI.MAMMO_ITS ---
Exam(s) MAMMO SCREENING EXAM: MAMMO SCREENING CLINICAL HISTORY: screening,z12.39 TECHNIQUE: Bilateral full field digital CC and MLO mammographic images were obtained with 3D tomosyn thesis and utilizing computer aided detection (CAD). COMPARISON: Available for comparison. FINDINGS: Masses/Architectural Distortion: None seen. Microcalcifications: No suspicious pleomorphic-type are seen. Skin Thickening/Nipple Retraction: None. IMPRESSION: 1. No significant interval change with no specific features of malignancy noted. 2. Unless there is more urgent need, screening mammography is recommended, as per [place] guidelines. BI-RADS Category 1 - Negative Breast Density - Category B - Scattered areas of fibroglandular density Breast density category C or D implies that the patient has dense breast tissue. Dense breast tissue is very common and is not abnormal but dense breast tissue can make it harder to find cancer on a ma mmogram. Also, dense breast tissue may increase their breast cancer risk. This information about the result of the mammogram report was provided to the patient to raise their awareness. Use this report when you speak with the patient about their risks for breast cancer, which includes their family hist ory. At that time, you may recommend for more screening tests (Ultrasound or MRI) as they might be us eful based on their risk. A negative radiographic report should not delay biopsy if a dominant or clinically suspicious mass is present. Up to ten percent of cancers are not identified on mammography. A negative report may reinforce clinical impression. Adenosis and dense breasts may obscure an underlying neoplasm. False positive reports average 6 to 10%. Patient will receive a letter notifying them of these results.
== END 2023-11-27 01:47 ==
LOC: DI 01:28
PROVIDERS: PCP Nurse Practitioner Family; Visit Provider Nurse Practitioner Family
DX: Z12.31 Encounter for screening mammogram for malignant neoplasm of breast (principal)
CPT/HCPCS: 77063; 77067

== ENCOUNTER 2024-01-07 03:00 | Outpatient (CLI) | payer OTHER, SELFPAY ==
[2024-01-07 10:51] LABS: Calculated LDL 163 mg/dL (<100); Cholesterol 241 mg/dL (<200); HDL Cholesterol 49 mg/dL (40-60); Triglyceride 146 mg/dL (<150)
== END 2024-01-07 03:01 | disposition home or self-care (01) ==
LOC: LBO 03:00
PROVIDERS: PCP Nurse Practitioner Family; Visit Provider Nurse Practitioner Family
DX: Z13.6 Encounter for screening for cardiovascular disorders (principal)
CPT/HCPCS: 36415; 80061

== ENCOUNTER 2024-12-02 02:10 | Outpatient (CLI) | payer MEDICARE, SELFPAY ==
--- NOTE | 2024-12-02 08:38 | DI.MAMMO_ITS ---
Exam(s) MAMMO SCREENING EXAM: MAMMO SCREENING CLINICAL HISTORY: screening,z12.39. TECHNIQUE: Bilateral full field digital CC and MLO mammographic images were obtained with 3D tomosynthesis and utilizing computer aided detection (CAD). COMPARISON: Prior mammograms were reviewed. FINDINGS: There has been no significant change in the appearance and distribution of the fibroglandular tissue. Left breast skin moles are again noted. There are no new spiculated masses nor new malignant appearing microcalcification groups. There is no significant architectural distortion nor skin thickening-retraction. IMPRESSION: No radiographic evidence of malignancy. BI-RADS Category 1 - Negative Breast Density - Category B - There are scattered areas of fibroglandular density. Breast density Category C or D implies that the patient has dense breast tissue. Dense breast tissue can make it harder to find cancer on a mammogram. Dense breast tissue is also associated with an increased risk of breast cancer. This information about the result of the mammogram report was provided to the patient to raise their awareness. Use this report when you speak with the patient about their risks for breast cancer, which includes their family history. At that time, you may recommend additional screening tests (Ultrasound or MRI) as these tests may add significant information. A negative radiographic report should not delay biopsy if a dominant or clinically suspicious mass is present. Up to ten percent of cancers are not identified on mammography. A negative report may reinforce clinical impression. Adenosis and dense breasts may obscure an underlying neoplasm. False positive reports average 6 to 10%. Patient will receive a letter notifying them of these results.
== END 2024-12-02 02:30 ==
LOC: DI 02:10
PROVIDERS: PCP Nurse Practitioner Family; Visit Provider Nurse Practitioner Family
DX: Z12.31 Encounter for screening mammogram for malignant neoplasm of breast (principal); R92.323 Mammographic fibroglandular density, bilateral breasts
CPT/HCPCS: 77063; 77067

== ENCOUNTER 2024-12-02 02:51 | Outpatient (CLI) | payer MEDICARE, SELFPAY ==
[2024-12-02 09:50] LABS: Calculated LDL 167 mg/dL (<100); Cholesterol 239 mg/dL (<200); HDL Cholesterol 37 mg/dL (>or=50); Triglyceride 176 mg/dL (<150)
== END 2024-12-02 02:52 | disposition home or self-care (01) ==
PROVIDERS: PCP Nurse Practitioner Family; Visit Provider Nurse Practitioner Family
DX: Z13.6 Encounter for screening for cardiovascular disorders (principal)
CPT/HCPCS: 36415; 77063; 77067; 80061